=== PATIENT | male | born 1975 | race Two or more races ===

== ENCOUNTER 2019-10-26 12:17 | Emergency (ER) | payer MEDICAID ==
[~2019-10-26] VITALS: Ht 162.6 cm; Wt 56.7 kg
[~2019-10-26 12:17] MED LIST: *INS REG3 SQ; Blood Sugar Diagnostic IN; INSU100C4 SQ; INSU100I19 SQ; INSU100V28 SQ
--- NOTE | 2019-10-26 12:22 | NUR ---
PT BIB SELF C/O DIZZINESS STARTED YESTERDAY, PT IS AAOX4, NOT IN RESPIRATORY DISTRESS, HOOKED TO MONITOR, KEPT RESTED AND COMFORTABLE, WILL CONTINUE TO MONITOR.
--- NOTE | 2019-10-26 12:40 | NUR ---
IV LINE ESTABLISHED, BLOOD DRAWN AND SENT TO LAB.
--- NOTE | 2019-10-26 12:45 | NUR ---
SEEN AND EXAMINED BY BLAKE EUBANKS
[2019-10-26 12:53] LABS: BASOPHILS # (AUTO) 0.1 /CMM (0.0-0.2); BASOPHILS % (AUTO) 0.6 % (0.0-2.0); EOSINOPHILS % (AUTO) 0.4 % (0.0-6.0); HEMATOCRIT 43 % (39-51); HEMOGLOBIN 14.2 g/dL (13.5-17.5); LYMPHOCYTES # (AUTO) 1.4 /CMM (0.8-4.8); LYMPHOCYTES % (AUTO) 13.1 % (20.0-44.0); MEAN CORPUSCULAR HGB CONC 33 g/dl (31.0-36.0); MEAN CORPUSCULAR VOLUME 91 fL (80-96); MONOCYTES # (AUTO) 0.5 /CMM (0.1-1.30); MONOCYTES % (AUTO) 4.7 % (2.0-12.0); NEUTROPHILS % (AUTO) 81.2 % (43.0-81.0); PLATELET COUNT (AUTO) 217 /CMM (150-450); RED BLOOD CELL COUNT(AUTO) 4.72 MIL/uL (4.5-6.0)
[2019-10-26] MEDS ORDERED: ONDANSETRON HCL/PF 4 MG/2 ML VIAL ONE (12:53)
[2019-10-26] MEDS ORDERED: MECLIZINE HCL 25 MG TABLET ONE (12:53)
[2019-10-26] MEDS ORDERED: ONDANSETRON HCL/PF 4 MG/2 ML VIAL IVP ONE (13:00)
[2019-10-26] MEDS ORDERED: MECLIZINE HCL 25 MG TABLET PO ONE (13:00)
[2019-10-26] MEDS ORDERED: IV NS 0.9% 1,000 ML BAG IV ONE ×2 (13:00→13:30)
[2019-10-26 13:09] LABS: CALCIUM, SERUM 8.9 mg/dL (8.5-10.1); CREATININE 0.9 mg/dL (0.6-1.3); POTASSIUM 3.8 mmol/L (3.5-5.1)
[2019-10-26 13:30] LABS: APPEARANCE,URINE CLEAR (CLEAR); BILIRUBIN,URINE NEGATIVE (NEGATIVE); BLOOD, URINE NEGATIVE Ery/uL (NEGATIVE); COLOR,URINE YELLOW (YELLOW); KETONES,URINE NEGATIVE (NEGATIVE); LEUKOCYTE ESTERASE ,URINE NEGATIVE (NEGATIVE); NITRITE, URINE NEGATIVE (NEGATIVE); PROTEIN,URINE NEGATIVE (NEGATIVE); UGLUCOSE >=1000 mg/dL (NEGATIVE); UROBILINOGEN,URINE 0.2 EU/dL (0.2)
[2019-10-26 13:36] LABS: BACTERIA,URINE None seen /HPF (None Seen); RBC,URINE NONE SEEN /HPF (0-2); SQUAMOUS EPITHELIAL CELL,UR 0-2 /HPF (None Seen); WBC,URINE NONE SEEN /HPF (0-3)
[2019-10-26] MEDS ORDERED: INSULIN REGULAR, HUMAN 100 UNIT/ML 10 ML VIAL IV ONE (14:00)
[2019-10-26] MEDS ORDERED: INSULIN REGULAR, HUMAN 100 UNIT/ML 10 ML VIAL ONE (14:05)
[2019-10-26 14:52] VITALS: BP 121/79
--- NOTE | 2019-10-26 14:52 | NUR ---
IV removed. Catheter intact and site benign. Pressure and 4x4 applied to site. No bleeding noted. Patient discharged to home in stable condition. Written and verbal after care instructions given. Patient verbalizes understanding of instruction.
== END 2019-10-26 14:53 | disposition home or self-care (01) ==
LOC: ER 12:22
DX: E11.65 Type 2 diabetes mellitus with hyperglycemia (principal); R42 Dizziness and giddiness; R11.0 Nausea; Z88.0 Allergy status to penicillin; Z79.4 Long term (current) use of insulin
CPT/HCPCS: 36415; 80048; 81001; 82962; 85025; 93005; 96361; 96374; 96375; 99284; J1815; J2405; J7030 ×2; J8597; 81000-TC

== ENCOUNTER 2019-11-16 14:05 | Emergency (ER) | payer MEDICAID ==
[~2019-11-16] VITALS: Ht 162.6 cm; Wt 56.7 kg
[2019-11-16] MEDS ORDERED: FLUORESCEIN SODIUM OPHTH 1 EA STRIP ONE (15:19)
[2019-11-16] MEDS ORDERED: FLUORESCEIN SODIUM OPHTH 1 EA STRIP OP ONE (15:30)
[2019-11-16] MEDS ORDERED: TETRAcaine 5 ML BOTTLE EACHEYE ONE (15:30)
[2019-11-16 15:39] VITALS: BP 115/78
== END 2019-11-16 15:43 | disposition home or self-care (01) ==
LOC: ER 14:07
DX: H10.9 Unspecified conjunctivitis (principal); E11.9 Type 2 diabetes mellitus without complications; Z88.0 Allergy status to penicillin; Z79.4 Long term (current) use of insulin

== ENCOUNTER 2019-12-05 12:39 | Emergency (ER) | payer MEDICAID ==
[~2019-12-05] VITALS: Ht 165.1 cm; Wt 55.8 kg
--- NOTE | 2019-12-05 13:00 | NUR ---
FEVER, CHILLS, AND BODY ACHES X 2 DAYS. PATIENT A/OX4, BREATHING EVEN AND UNLABORED, NO SOB NOTED, CHANGED INTO GOWN, ATTACHED TO THE RN RESEARCH.
--- NOTE | 2019-12-05 13:10 | NUR ---
ACCUCHECK SHOWED HIGH, LUAN LOVE MADE AWARE.
[2019-12-05] MEDS ORDERED: ONDANSETRON HCL/PF 4 MG/2 ML VIAL IVP ONE (13:30)
[2019-12-05] MEDS ORDERED: INSULIN REGULAR, HUMAN 100 UNIT/ML 10 ML VIAL SQ ONE (13:30)
[2019-12-05] MEDS ORDERED: ACETAMINOPHEN ES 500 MG TABLET PO ONE (13:30)
[2019-12-05] MEDS ORDERED: IV NS 0.9% 1,000 ML BAG IV ONE (13:30)
[2019-12-05] MEDS ORDERED: ONDANSETRON HCL/PF 4 MG/2 ML VIAL ONE (13:33)
[2019-12-05] MEDS ORDERED: INSULIN REGULAR, HUMAN 100 UNIT/ML 10 ML VIAL ONE (13:34)
[2019-12-05] MEDS ORDERED: ACETAMINOPHEN ES 500 MG TABLET ONE (13:35)
[2019-12-05 13:39] LABS: BASOPHILS # (AUTO) 0.1 /CMM (0.0-0.2); BASOPHILS % (AUTO) 0.6 % (0.0-2.0); EOSINOPHILS % (AUTO) 0.6 % (0.0-6.0); HEMATOCRIT 43 % (39-51); HEMOGLOBIN 14.5 g/dL (13.5-17.5); LYMPHOCYTES # (AUTO) 1.7 /CMM (0.8-4.8); MEAN CORPUSCULAR HGB CONC 33 g/dl (31.0-36.0); MEAN CORPUSCULAR VOLUME 91 fL (80-96); MONOCYTES % (AUTO) 6.6 % (2.0-12.0); NEUTROPHILS # (AUTO) 12.2 /CMM (1.8-8.9); NEUTROPHILS % (AUTO) 81.2 % (43.0-81.0); PLATELET COUNT (AUTO) 204 /CMM (150-450); RED BLOOD CELL COUNT(AUTO) 4.79 MIL/uL (4.5-6.0); WHITE BLOOD COUNT (AUTO) 15.1 K/uL (4.3-11.0)
[2019-12-05 14:03] LABS: BILIRUBIN,DIRECT 0.1 mg/dL (0.0-0.2); BILIRUBIN,TOTAL 0.3 mg/dL (0.2-1.0); CALCIUM, SERUM 9.6 mg/dL (8.5-10.1); CREATININE 1.4 mg/dL (0.6-1.3); POTASSIUM 3.6 mmol/L (3.5-5.1); TOTAL PROTEIN, SERUM 7.6 g/dL (6.4-8.2)
--- NOTE | 2019-12-05 14:15 | NUR ---
PATIENT RESTING, NO DISTRESS NOTED, AMBULATORY WITH STEADY GAIT.
[2019-12-05 14:41] LABS: APPEARANCE,URINE Clear (CLEAR); BILIRUBIN,URINE Negative (NEGATIVE); BLOOD, URINE Trace-intact Ery/uL (NEGATIVE); COLOR,URINE Yellow (YELLOW); KETONES,URINE 15 (NEGATIVE); LEUKOCYTE ESTERASE ,URINE Negative (NEGATIVE); NITRITE, URINE Negative (NEGATIVE); PROTEIN,URINE Negative (NEGATIVE); UGLUCOSE >=1000 mg/dL (NEGATIVE); UROBILINOGEN,URINE 0.2 EU/dL (0.2)
[2019-12-05 14:44] LABS: BACTERIA,URINE Rare /HPF (None Seen); HYALINE CASTS, URINE Rare /LPF (None Seen); SQUAMOUS EPITHELIAL CELL,UR Rare /HPF (None Seen); WBC,URINE 0-2 /HPF (0-3)
--- NOTE | 2019-12-05 16:13 | NUR ---
BED ASSIGNED 119-1
--- NOTE | 2019-12-05 16:24 | NUR ---
REPORT GIVEN TO MICKIE HASKINS FOR SUSAN.
--- NOTE | 2019-12-05 16:32 | NUR ---
PATIENT WAS AUTHORIZED FOR ADMISSION, WAS ABOUT TO TRANSFER TO FLOOR, BUT LUAN LOVE, CHANGED HER MIND AND DECIDED TO DISCHARGE PATIENT HOME.
--- NOTE | 2019-12-05 16:33 | NUR ---
LUAN LOVE AT BEDSIDE GIVING DISCHARGE INSTRUCTIONS.
--- NOTE | 2019-12-05 16:52 | NUR ---
PATIENT Ambulatory with a steady gait.IV removed. Catheter intact and site benign. Pressure and 4x4 applied to site. No bleeding noted.Patient discharged to home in stable condition. Written and verbal after care instructions given. Patient verbalizes understanding of instruction.
[2019-12-05 16:53] VITALS: BP 137/96
== END 2019-12-05 16:54 | disposition home or self-care (01) ==
LOC: ER 12:42 → UNDOADMIN 16:26 → TELE1 16:26 → ER 16:54
DX: E11.65 Type 2 diabetes mellitus with hyperglycemia (principal); E86.0 Dehydration; R74.8 Abnormal levels of other serum enzymes; D72.828 Other elevated white blood cell count; R31.9 Hematuria, unspecified; Z88.0 Allergy status to penicillin
CPT/HCPCS: 36415; 71045; 80048; 80076; 81001; 82962; 85025; 87077; 87081; 87086; 87804 ×2; 93005; 96361; 96372; 96374; 99284; J1815; J2405; J7030 ×2; 81000-TC

== ENCOUNTER 2019-12-07 11:06 | Inpatient (IN) | payer BC, MEDICAID ==
[2019-12-07] VITALS (10 sets, daily range): BP systolic 115–135; BP diastolic 73–88
[~2019-12-07] VITALS: Ht 162.6 cm; Wt 51.7 kg
--- NOTE | 2019-12-07 11:15 | NUR ---
meaghan, c/o nausea vomiting, and r knee pain x 2 days, was here 2 days ago. Patient a/ox4, breathing even and unlabored, no sob noted, changed into gown, attached to the threat monitoring analyst. Kept comfortable, family at bedside.
[2019-12-07] MEDS ORDERED: ONDANSETRON HCL/PF 4 MG/2 ML VIAL ONE (11:23)
[2019-12-07] MEDS ORDERED: METF-440 PO (11:28)
[2019-12-07] MEDS ORDERED: ONDANSETRON HCL/PF 4 MG/2 ML VIAL IVP ONE (11:30)
[2019-12-07] MEDS ORDERED: IV NS 0.9% 1,000 ML BAG IV ONE ×2 (11:30→12:30)
--- NOTE | 2019-12-07 11:30 | NUR ---
IV LINE ESTABLISHED, BLOOD DRAWN AND SENT TO LAB.
[2019-12-07 11:41] LABS: BASOPHILS % (AUTO) 0.2 % (0.0-2.0); HEMATOCRIT 43 % (39-51); HEMOGLOBIN 14.2 g/dL (13.5-17.5); LYMPHOCYTES # (AUTO) 1.3 /CMM (0.8-4.8); LYMPHOCYTES % (AUTO) 7.1 % (20.0-44.0); MEAN CORPUSCULAR HGB CONC 33 g/dl (31.0-36.0); MEAN CORPUSCULAR VOLUME 91 fL (80-96); MONOCYTES # (AUTO) 0.7 /CMM (0.1-1.30); MONOCYTES % (AUTO) 3.7 % (2.0-12.0); NEUTROPHILS # (AUTO) 16.9 /CMM (1.8-8.9); PLATELET COUNT (AUTO) 298 /CMM (150-450); RED BLOOD CELL COUNT(AUTO) 4.72 MIL/uL (4.5-6.0)
[2019-12-07 11:44] LABS: APPEARANCE,URINE Clear (CLEAR); BILIRUBIN,URINE Negative (NEGATIVE); BLOOD, URINE Small Ery/uL (NEGATIVE); COLOR,URINE Yellow (YELLOW); KETONES,URINE >=160 (NEGATIVE); LEUKOCYTE ESTERASE ,URINE Negative (NEGATIVE); NITRITE, URINE Negative (NEGATIVE); PROTEIN,URINE Negative (NEGATIVE); UGLUCOSE 500 MG/DL mg/dL (NEGATIVE); UROBILINOGEN,URINE 0.2 EU/dL (0.2)
[2019-12-07 11:47] LABS: BACTERIA,URINE Rare /HPF (None Seen); RBC,URINE 0-2 /HPF (0-2); SQUAMOUS EPITHELIAL CELL,UR Few /HPF (None Seen); WBC,URINE 0-2 /HPF (0-3)
[2019-12-07 12:05] LABS: ALANINE AMINOTRANSFERASE 40 U/L (12-78); ALBUMIN 2.9 g/dL (3.4-5.0); ALKALINE PHOSPHATASE 155 U/L (46-116); ASPARTATE AMINOTRANSFERASE 10 U/L (15-37); BILIRUBIN,DIRECT 0.1 mg/dL (0.0-0.2); BILIRUBIN,TOTAL 0.5 mg/dL (0.2-1.0); CARBON DIOXIDE 13 mmol/L (21-32); CHLORIDE 103 mmol/L (98-107); CREATININE 1.5 mg/dL (0.6-1.3); LIPASE 46 U/L (73-393); POTASSIUM 3.8 mmol/L (3.5-5.1); SODIUM SERUM 143 mmol/L (136-145); TOTAL PROTEIN, SERUM 8.5 g/dL (6.4-8.2); UREA NITROGEN, BLOOD 27 mg/dL (7-18)
[2019-12-07 12:06] LABS: GLUCOSE 443 mg/dL (74-106)
[2019-12-07 12:07] LABS: B-TYPE NATRIURETIC PEPTIDE 937 PG/ML (0-125)
[2019-12-07] MEDS ORDERED: INSULIN REGULAR, HUMAN 100 UNIT in IV NS 0.9% 99 ML IV PRN ×2 (12:30)
[2019-12-07] MEDS ORDERED: LEVOFLOXACIN 500 MG /D5W 100ML 500 MG/100 ML PIGGYBACK IV ONE (12:30)
[2019-12-07] MEDS ORDERED: FLAGYL/NS RTU 500 MG/100 ML PIGGYBACK IV ONE (12:30)
--- NOTE | 2019-12-07 12:30 | NUR ---
INSULIN DRIP STARTED AT 1230 AT A RATE OF 6UNITS/HR ON RAC G18 IV.
[2019-12-07 12:34] LABS: ABG BASE EXCESS -18.6 mmol/L; ABG PCO2 16.3 mmHg (35.0-45.0); ABG PH 7.221 (7.350-7.450); ABG PO2 117.3 mmHg (75.0-100.0); AaDO2 12.9 mmHg; SITE, ABG Left Radial; VENT MODE, BG Room Air
[2019-12-07] MEDS ORDERED: LEVOFLOXACIN 500 MG /D5W 100ML 100 ML IV ONE (12:38)
[2019-12-07] MEDS ORDERED: METRONIDAZOLE 500MG/ NS 100ML 100 ML IV ONE (12:38)
[2019-12-07] MEDS ORDERED: IV NS 0.9% 1,000 ML IV PRN (12:45)
--- NOTE | 2019-12-07 12:50 | NUR ---
CALLED RN [employer] INST[employer]ER FOR ICU BED
[2019-12-07 12:55] LABS: CALCIUM, SERUM 8.9 mg/dL (8.5-10.1); CREATININE 1.4 mg/dL (0.6-1.3); MAGNESIUM 1.9 mg/dL (1.8-2.4); PHOSPHORUS 4.3 mg/dL (2.5-4.9); POTASSIUM 4.1 mmol/L (3.5-5.1)
[2019-12-07] MEDS ORDERED: Z GUARD REMEDY 2 OZ OINT TP PRN (13:00)
[2019-12-07] MEDS ORDERED: ACETAMINOPHEN 325 MG TABLET PO PRN (13:00)
[2019-12-07] MEDS ORDERED: TEMAZEPAM 15 MG CAPSULE PO PRN (13:00)
[2019-12-07] MEDS ORDERED: MORPHINE SULFATE INJ 2 MG/ML DISP.SYRIN IV PRN (13:00)
[2019-12-07] MEDS ORDERED: ONDANSETRON HCL/PF 4 MG/2 ML VIAL IVP PRN (13:00)
--- NOTE | 2019-12-07 13:00 | NUR ---
PATIENT AA/OX4, BREATHING EVEN AND UNLABORED, NO SOB NOTED. SEEN BY ESTELITA HERNANDEZ NP. CT SCAN COMPLETED, RESULT PENDING.
--- NOTE | 2019-12-07 13:31 | NUR ---
Assigned to room 256. Tried to give report, but receiving nurse is currently on break.
--- NOTE | 2019-12-07 14:06 | NUR ---
REPORT GIVEN TO STEFANO HASKINS FOR SUSAN.
--- NOTE | 2019-12-07 14:15 | NUR ---
ICU/RN PT ADMITTED FROM ER.ON INSULIN DRIP AT 6 UNITS.C/O OF NAUSEA/VOMITING,WEAKNESS.PT IS AWAKE ,ALERT.V/S STABLE,AFEBRILE.NO PAIN REPORTED AT THIS TIME.SKIN INTACT.NPO.WAITING FOR GI CONSULT.
--- NOTE | 2019-12-07 14:19 | NUR ---
PATIENT TRANSFERRED TO ROOM 256 VIA ACLS PROTOCOL. PATIENT A/OX4, NO DSITRESS NOTED.
[2019-12-07 14:36] LABS: CALCIUM, SERUM 9.3 mg/dL (8.5-10.1); CREATININE 1.4 mg/dL (0.6-1.3); MAGNESIUM 2.1 mg/dL (1.8-2.4); PHOSPHORUS 2.3 mg/dL (2.5-4.9); POTASSIUM 3.3 mmol/L (3.5-5.1)
[2019-12-07] MEDS: PANTOPRAZOLE 40 MG VIAL IV SCH (14:50)
--- NOTE | 2019-12-07 15:00 | NUR ---
ICU/RN PT VOMIT WITH [address] GARCIA SEEN THE PT .REGLAN 10 MG IV ORDERED.KEEP PT NPO.NO NG TUBE.DUE MEDS ARE GIVEN ORDERED.CONTINUE MONITORING.
--- NOTE | 2019-12-07 15:00 | NUR ---
ICU/RN PT IS ON INSULIN DRIP .DR ORDERED FORMULA FOR INSULIN DRIP: USE BLOOD SUGAR RESULT MULTIPLY 2 AND DIVIDED 100.
[2019-12-07] MEDS: METOCLOPRAMIDE HCL 10 MG/2 ML VIAL IV SCH ×2 (15:19→20:37)
[2019-12-07] MEDS ORDERED: DEXTROSE 50%-WATER 50 ML DISP.SYRIN IV PRN (16:00)
--- NOTE | 2019-12-07 16:07 | NUR ---
ICU/RN PT WAS C/O OF RIGHT KNEE PAIN DURING ADMISSION.X-RAY ORDERED.
[2019-12-07 16:24] LABS: CREATININE 1.4 mg/dL (0.6-1.3); POTASSIUM 3.1 mmol/L (3.5-5.1)
[2019-12-07] MEDS: BLOOD SUGAR DIAGNOSTIC 1 EACH STRIP IN SCH ×15 (16:25→22:55)
[2019-12-07 16:28] LABS: PHOSPHORUS 1.6 mg/dL (2.5-4.9)
[2019-12-07] MEDS: Potassium Chloride 40 MEQ in IV D5/0.45 NACL 1,000 ML IV PRN (18:53)
[2019-12-07] MEDS: INSULIN REGULAR, HUMAN 100 UNIT in IV NS 0.9% 99 ML IV PRN ×2 (19:50)
[2019-12-07 20:32] LABS: CALCIUM, SERUM 8.8 mg/dL (8.5-10.1); CREATININE 1.4 mg/dL (0.6-1.3); POTASSIUM 3.3 mmol/L (3.5-5.1)
[2019-12-07] MEDS: METRONIDAZOLE 500MG/ NS 100ML 500 MG in PREMIX 1 EA IV SCH (20:37)
--- NOTE | 2019-12-07 20:38 | NUR ---
ICU/RN PT VOMIT 50 ML.REGLAN 10 MG IV GIVEN ORDERED.BS-140.PT IS ON INSULIN DRIP.CONTINUE MONITORING.
[2019-12-08] VITALS (24 sets, daily range): BP systolic 117–157; BP diastolic 77–98
[2019-12-08] MEDS: BLOOD SUGAR DIAGNOSTIC 1 EACH STRIP IN SCH ×32 (00:10→23:56)
[2019-12-08 00:44] LABS: CALCIUM, SERUM 8.7 mg/dL (8.5-10.1); CREATININE 1.2 mg/dL (0.6-1.3); POTASSIUM 3.1 mmol/L (3.5-5.1)
[2019-12-08] MEDS: METRONIDAZOLE 500MG/ NS 100ML 500 MG in PREMIX 1 EA IV SCH ×3 (04:29→20:30)
[2019-12-08] MEDS: METOCLOPRAMIDE HCL 10 MG/2 ML VIAL IV SCH ×3 (04:29→20:31)
[2019-12-08] MEDS: Potassium Chloride 40 MEQ in IV D5/0.45 NACL 1,000 ML IV PRN ×2 (04:30→18:12)
[2019-12-08 05:10] LABS: BASOPHILS # (AUTO) 0.1 /CMM (0.0-0.2); BASOPHILS % (AUTO) 0.7 % (0.0-2.0); HEMATOCRIT 34 % (39-51); HEMOGLOBIN 11.3 g/dL (13.5-17.5); LYMPHOCYTES # (AUTO) 1.7 /CMM (0.8-4.8); LYMPHOCYTES % (AUTO) 11.2 % (20.0-44.0); MEAN CORPUSCULAR HGB CONC 34 g/dl (31.0-36.0); MEAN CORPUSCULAR VOLUME 89 fL (80-96); MONOCYTES # (AUTO) 1.3 /CMM (0.1-1.30); MONOCYTES % (AUTO) 8.7 % (2.0-12.0); NEUTROPHILS # (AUTO) 11.8 /CMM (1.8-8.9); NEUTROPHILS % (AUTO) 79.4 % (43.0-81.0); PLATELET COUNT (AUTO) 241 /CMM (150-450); RED BLOOD CELL COUNT(AUTO) 3.83 MIL/uL (4.5-6.0); WHITE BLOOD COUNT (AUTO) 14.8 K/uL (4.3-11.0)
[2019-12-08 05:28] LABS: CALCIUM, SERUM 8.6 mg/dL (8.5-10.1); CARBON DIOXIDE 18 mmol/L (21-32); CHLORIDE 116 mmol/L (98-107); GLUCOSE 151 mg/dL (74-106); MAGNESIUM 1.8 mg/dL (1.8-2.4); PHOSPHORUS 1.1 mg/dL (2.5-4.9); SODIUM SERUM 148 mmol/L (136-145); UREA NITROGEN, BLOOD 15 mg/dL (7-18)
[2019-12-08 05:30] LABS: CHOLESTEROL 150 mg/dL (<200); HDL CHOLESTEROL < 10 mg/dL (40-60); LDL 95 mg/dL (0-99); THYROID STIMULATING HORMONE 0.568 uIU/mL (0.358-3.74); TRIGLYCERIDES 149 mg/dL (30-150)
--- NOTE | 2019-12-08 07:44 | NUR ---
RN INITAL NOTES RECEIVED PT AWAKE AND ALERT, DENIES PAIN. NO SIGNS OF ANY DISTRESS. ABLE TO MAKE NEEDS KNOWN. PT REMAINS ON NPO. SAFETY ENSURED AND REMAINS ON BLOOD SUGAR CHECKS HOURLY WITH INSULIN DRIP DIRECTED.
[2019-12-08] MEDS ORDERED: POTASSIUM CHLORIDE 20 MEQ TAB.PRT.SR PO ONE ×2 (08:00→16:00)
[2019-12-08] MEDS: CEFTRIAXONE 1 G in IV D5W 50 ML IV SCH (08:44)
[2019-12-08 08:45] LABS: CALCIUM, SERUM 8.9 mg/dL (8.5-10.1)
[2019-12-08] MEDS: PANTOPRAZOLE 40 MG VIAL IV SCH (08:45)
[2019-12-08 12:43] LABS: CALCIUM, SERUM 8.9 mg/dL (8.5-10.1); POTASSIUM 3.1 mmol/L (3.5-5.1)
[2019-12-08] MEDS: INSULIN REGULAR, HUMAN 100 UNIT in IV NS 0.9% 99 ML IV PRN ×2 (13:12)
[2019-12-08] MEDS ORDERED: NEUTRA PHOS 1 POWD.PACKET PO ONE (16:00)
--- NOTE | 2019-12-08 18:31 | NUR ---
rn closing notes no significant change during this shift. remains on hourly accuchecks and insulin as ordered. will endorse to next shift rn for continuity of care in stable condition
[2019-12-08 19:06] LABS: CALCIUM, SERUM 9.3 mg/dL (8.5-10.1); POTASSIUM 3.6 mmol/L (3.5-5.1)
--- NOTE | 2019-12-08 19:30 | NUR ---
RN NOTE RECEIVED PATIENT AOX4 SR ON TELE MONITOR. NO ACUTE RESPIRATORY DISTRESS DENIES PAIN IN ROOM AIR, AT THIS TIME. NO N/V PRESENT. AFEBRILE. IV SITE ON RAC AND LAC G 18 WITH D5 1/2 NS +40 MEQ POTASSIUM AND INSULIN DRIP @ 3.88 WILL TITRATED ORDERED. ACCUCHECK Q1H BS AT THIS TIME 219MG/DL. CALL LIGHT KEPT WITHN EASY REACH ENCOURAGED TO USED CALL LIGHT FOR ASSISTANCE. WILL CONTINUE TO MONITOR.
[2019-12-08 22:32] LABS: CALCIUM, SERUM 9.3 mg/dL (8.5-10.1); POTASSIUM 3.9 mmol/L (3.5-5.1)
[2019-12-09] VITALS (8 sets, daily range): BP systolic 147–166; BP diastolic 80–96
[2019-12-09] MEDS ORDERED: INSULIN GLARGINE, 100 UNIT/ML CARTRIDGE SQ ONE
--- NOTE | 2019-12-09 | NUR ---
RN NOTES 2340 PM - INFORMED REGARDING PATIENT BS 115 MG/DL AND ANION GAP 15. WITH NEW ORDER ACKNOWLEDGED
[2019-12-09] MEDS ORDERED: *INSULIN REGULAR(HUMULIN R)HUM 100 UNIT/ML VIAL SQ PRN (00:30)
[2019-12-09] MEDS ORDERED: DEXTROSE 50%-WATER 50 ML DISP.SYRIN IV PRN (00:30)
[2019-12-09] MEDS: Potassium Chloride 40 MEQ in IV D5/0.45 NACL 1,000 ML IV PRN (04:47)
[2019-12-09] MEDS: METRONIDAZOLE 500MG/ NS 100ML 500 MG in PREMIX 1 EA IV SCH ×2 (04:47→13:00)
[2019-12-09] MEDS: METOCLOPRAMIDE HCL 10 MG/2 ML VIAL IV SCH ×2 (04:51→13:00)
--- NOTE | 2019-12-09 05:05 | NUR ---
RN NOTES TRANSFERRED PATIENT TO [facility] ROOM 316-A . PATIENT IS IN STABLE CONDITION , CONTINUE WITH IVF ORDERED. REPORT GIVEN TO JEROME FOR CONTINUITY OF CARE .
--- NOTE | 2019-12-09 05:05 | NUR ---
MS RN NOTES PATIENT ARRIVED ON FLOOR 0505 ON WHEELCHAIR. PATIENT IN BED, AWAKE, ALERT AND ORIENTED X 4. BREATHING EVEN AND UNLABORED ON ROOM AIR. SHOWS NO SIGNS OF ACUTE RESPIRATORY DISTRESS. NO ACUTE PAIN. IV ON RAC 18G RUNNING D5 1/2NS KCL 40MEQ AT 125ML/ HR. SHOWS NO SIGNS OF INFILTRATION NO REDNESS. BELONGINGS CHECKLIST COMPLETED, AND PATIENT ORIENTED TO ROOM AND UNIT. SAFETY PRECAUTIONS IN PLACE. BED IN LOWEST POSITION, LOCKED, AND CALL LIGHT KEPT WITHIN REACH. WILL CONTINUE TO MONITOR.
[2019-12-09 05:17] LABS: HEMATOCRIT 36 % (39-51); HEMOGLOBIN 12.2 g/dL (13.5-17.5); MEAN CORPUSCULAR HGB CONC 34 g/dl (31.0-36.0); MEAN CORPUSCULAR VOLUME 88 fL (80-96); PLATELET COUNT (AUTO) 259 /CMM (150-450); RED BLOOD CELL COUNT(AUTO) 4.06 MIL/uL (4.5-6.0); WHITE BLOOD COUNT (AUTO) 12.7 K/uL (4.3-11.0)
[2019-12-09 05:29] LABS: CALCIUM, SERUM 9.1 mg/dL (8.5-10.1); CREATININE 0.9 mg/dL (0.6-1.3); POTASSIUM 4.1 mmol/L (3.5-5.1)
--- NOTE | 2019-12-09 06:36 | NUR ---
MS RN NOTES PATIENT IN BED, ASLEEP, ALERT AND ORIENTED X 4. BREATHING EVEN AND UNLABORED ON ROOM AIR. SHOWS NO SIGNS OF ACUTE RESPIRATORY DISTRESS. NO ACUTE PAIN. IV ON RAC 18G RUNNING D5 1/2NS KCL 40MEQ AT 125ML/ HR. SHOWS NO SIGNS OF INFILTRATION NO REDNESS. TELE ON SR AT 71HR ALL DUE MEDICATIONS GIVEN. SAFETY PRECAUTIONS IN PLACE. BED IN LOWEST POSITION, LOCKED, AND CALL LIGHT KEPT WITHIN REACH. WILL ENDORSE TO ONCOMING NURSE.
[2019-12-09] MEDS: BLOOD SUGAR DIAGNOSTIC 1 EACH STRIP VI SCH ×2 (06:38→12:06)
[2019-12-09] MEDS: INSULIN REGULAR, HUMAN 100 UNIT/ML 3 ML VIAL SQ PRN ×2 (06:44→11:59)
--- NOTE | 2019-12-09 07:25 | NUR ---
METALLURGICAL ENGINEERING TEACHER OPENING NOTES RECEIVED PT IN BED, AWAKE, A/O X4. PT TOLERATING RA, WITH NO ACUTE RESPIRATORY DISTRESS NOTED. PT STATES KNEE PAIN OF 4/10, PREFERS TO HAVE TYLENOL INCLUDED IN MORNING MEDICINES. ALSO, PT WANTS TO BE DISCHARGE TODAY IF POSSIBLE. ON TELEMONITORING, SB 58, PT DENIES CHEST PAIN. IVF D5 1/2 NS WITH 40 MEQS K+ AT 125ML/HR TO RAC G18, INTACT AND FLUID INFUSING WELL. KEPT PT COMFORTABLE IN BED. CALL LIGHT KEPT WITHIN REACH. PT'S BED KEPT IN LOWEST, LOCKED POSITION WITH SRX3. WILL CONTINUE PLAN OF CARE.
[2019-12-09] MEDS ORDERED: BLOOD SUGAR DIAGNOSTIC 1 EACH STRIP IN SCH (07:30)
[2019-12-09 08:12] LABS: LYMPHOCYTES % (MANUAL) 22 % (16-48); MONOCYTES % (MANUAL) 8 % (0-11.0); NEUTROPHILS % (MANUAL) 70 (42-76)
[2019-12-09] MEDS: CEFTRIAXONE 1 G in IV D5W 50 ML IV SCH (08:31)
[2019-12-09] MEDS: PANTOPRAZOLE 40 MG VIAL IV SCH (08:31)
[2019-12-09] MEDS ORDERED: INFLUENZA VACCINE 2019-20 0.5 ML DISP.SYRIN IM ONE (13:00)
--- NOTE | 2019-12-09 13:54 | NUR ---
MS BPM ARCHITECT NOTES PT IN BED, AWAKE, A/O X4. PT TOLERATING RA, WITH NO ACUTE RESPIRATORY DISTRESS NOTED. PT DENIES ANY PAIN OR DISCOMFORT AT THE TIME OF DISCHARGE. PT REVIEWED AND SIGNED DISCHARGE INSTRUCTIONS AND INVENTORY LIST. ALL BELONGINGS WITH THE PT. PRESCRIPTIONS GIVEN TO PT. PT KNOWS HOW TO TAKE INSULIN. FLU VACCINE GIVEN TO RIGHT DELTOID. ALL NEEDS AND CARE PROVIDED. PT HAPPY WITH THE CARE. PIV TO RAC G18, REMOVED, APPLIED DRY DRESSING. SKIN INTACT, NO PICTURES TAKEN AND FILED IN THE CHART. PT ESCORTED TO THE LOBBY WITH THE SON. HOSPITALIST/NN AND CN/KOBE AWARE OF DISCHARGE. PT LEFT THE UNIT AT 1340.
[2019-12-09] MEDS ORDERED: INSULIN GLARGINE, 100 UNIT/ML CARTRIDGE SQ SCH (22:00)
== END 2019-12-09 13:36 | disposition home or self-care (01) | DRG 420 ==
LOC: ER 11:06 → ICU 13:44 → TELE 12-09 05:09 → MED 12-09 10:33
PROVIDERS: ADMIT Nurse Practitioner Acute Care; ATTEND Nurse Practitioner Acute Care
DX: E11.10 Type 2 diabetes mellitus with ketoacidosis without coma (principal); N17.0 Acute kidney failure with tubular necrosis; R65.11 Systemic inflammatory response syndrome (SIRS) of non-infectious origin with acute organ dysfunction; E44.0 Moderate protein-calorie malnutrition; E87.6 Hypokalemia; D72.829 Elevated white blood cell count, unspecified; Z68.1 Body mass index [BMI] 19.9 or less, adult; K57.32 Diverticulitis of large intestine without perforation or abscess without bleeding; E11.43 Type 2 diabetes mellitus with diabetic autonomic (poly)neuropathy; K31.84 Gastroparesis; M25.461 Effusion, right knee; Z88.0 Allergy status to penicillin
CPT/HCPCS: 36415; 36600; 73564-TC; 80048-TC; 80061-TC; 80076-TC; 81000-TC; 82010-TC; 82803-TC; 82962-TC; 83605-TC; 83690-TC; 83735-TC; 83880; 84100-TC; 84443-TC; 84484-TC; 85025-TC; 87040-TC; 87081-TC; 87086-TC; A4216; C9113; G0378; J0696; J1815; J1956; J2405; J2765; J3480; J3490; J7030; J7050; J7060; Q2036

== ENCOUNTER 2022-07-07 12:19 | Emergency (ER) | payer BC, MEDICAID ==
[~2022-07-07] VITALS: Ht 162.6 cm; Wt 56.7 kg
--- NOTE | 2022-07-07 12:26 | NUR ---
bib son, c/o weakness and generalized body aches. tested +covid 2 days ago denies sob. AMBULATORY, PLACED ON BED, AAOX4, BREATHING EVEN AND UNLABORED. SEEN AND EXAMINED BY DR HERNANDEZ
--- NOTE | 2022-07-07 12:30 | NUR ---
BLOOD DRAWN AND SENT TO LAB
[2022-07-07] MEDS ORDERED: IV NS 0.9% 1,000 ML BAG IV ONE (13:00)
[2022-07-07 13:16] LABS: BASOPHILS % (AUTO) 0.8 % (0.0-2.0); HEMATOCRIT 39 % (39-51); HEMOGLOBIN 12.9 g/dL (13.5-17.5); LYMPHOCYTES # (AUTO) 0.9 K/uL (0.8-4.8); LYMPHOCYTES % (AUTO) 18.2 % (20.0-44.0); MEAN CORPUSCULAR HGB CONC 33 g/dl (31.0-36.0); MEAN CORPUSCULAR VOLUME 89 fL (80-96); MONOCYTES # (AUTO) 0.4 K/uL (0.1-1.30); MONOCYTES % (AUTO) 8.7 % (2.0-12.0); NEUTROPHILS # (AUTO) 3.5 K/uL (1.8-8.9); NEUTROPHILS % (AUTO) 72.3 % (43.0-81.0); PLATELET COUNT (AUTO) 159 K/uL (150-450); RED BLOOD CELL COUNT(AUTO) 4.38 MIL/uL (4.5-6.0); WHITE BLOOD COUNT (AUTO) 4.9 K/uL (4.3-11.0)
[2022-07-07 13:29] LABS: CARBON DIOXIDE 23 mmol/L (21-32); CHLORIDE 97 mmol/L (98-107); CREATININE 1.3 mg/dL (0.6-1.3); POTASSIUM 3.7 mmol/L (3.5-5.1); SODIUM SERUM 133 mmol/L (136-145); UREA NITROGEN, BLOOD 15 mg/dL (7-18)
[2022-07-07 13:35] LABS: GLUCOSE 599 mg/dL (74-106)
[2022-07-07] MEDS ORDERED: INSULIN REGULAR, HUMAN 100 UNIT/ML 10 ML VIAL ONE (13:53)
[2022-07-07] MEDS ORDERED: POTASSIUM CHLORIDE 20 MEQ TAB.PRT.SR PO ONE ×2 (13:53→14:00)
[2022-07-07] MEDS ORDERED: INSULIN REGULAR, HUMAN 100 UNIT/ML 10 ML VIAL SQ ONE (14:00)
[2022-07-07 16:48] VITALS: BP 104/61
--- NOTE | 2022-07-07 16:48 | NUR ---
IV removed. Catheter intact and site benign. Pressure and 4x4 applied to site. No bleeding noted.Patient discharged to home in stable condition. Written and verbal after care instructions given. Patient verbalizes understanding of instruction.
== END 2022-07-07 16:51 | disposition home or self-care (01) ==
LOC: ER 12:27
DX: U07.1 COVID-19 (principal); E11.65 Type 2 diabetes mellitus with hyperglycemia; Z91.14 Patient's other noncompliance with medication regimen; Z88.0 Allergy status to penicillin
CPT/HCPCS: 99283; 96360; 85025; 80048; 82010; 36415; 82962 ×2; 96372; J1815; J7030

== ENCOUNTER 2022-08-18 14:20 | Inpatient (IN) | payer MEDICAID ==
[~2022-08-18] VITALS: Ht 165.1 cm; Wt 53.5 kg
[2022-08-18 15:38] LABS: BASOPHILS # (AUTO) 0.1 K/uL (0.0-0.2); BASOPHILS % (AUTO) 0.8 % (0.0-2.0); EOSINOPHILS % (AUTO) 0.7 % (0.0-6.0); HEMATOCRIT 39 % (39-51); HEMOGLOBIN 12.9 g/dL (13.5-17.5); LYMPHOCYTES # (AUTO) 1.4 K/uL (0.8-4.8); LYMPHOCYTES % (AUTO) 14.1 % (20.0-44.0); MEAN CORPUSCULAR HGB CONC 33 g/dl (31.0-36.0); MEAN CORPUSCULAR VOLUME 87 fL (80-96); MONOCYTES # (AUTO) 0.6 K/uL (0.1-1.30); MONOCYTES % (AUTO) 6.1 % (2.0-12.0); NEUTROPHILS # (AUTO) 7.8 K/uL (1.8-8.9); NEUTROPHILS % (AUTO) 78.3 % (43.0-81.0); PLATELET COUNT (AUTO) 252 K/uL (150-450); RED BLOOD CELL COUNT(AUTO) 4.41 MIL/uL (4.5-6.0)
[2022-08-18 15:57] LABS: CALCIUM, SERUM 9.4 mg/dL (8.5-10.1); CREATININE 1.3 mg/dL (0.6-1.3); POTASSIUM 4.8 mmol/L (3.5-5.1)
[2022-08-18] MEDS ORDERED: INSULIN REGULAR, HUMAN 100 UNIT/ML 10 ML VIAL SQ ONE (16:30)
[2022-08-18] MEDS ORDERED: IV NS 0.9% 1,000 ML BAG IV ONE (16:30)
[2022-08-18] MEDS ORDERED: VANCOMYCIN 1 GM in IV D5W 250 ML IV ONE (16:30)
[2022-08-18] MEDS ORDERED: INSULIN REGULAR, HUMAN 100 UNIT/ML 10 ML VIAL ONE (16:37)
[2022-08-18 20:30] VITALS: BP 136/68
[2022-08-18] MEDS ORDERED: INSULIN REGULAR, HUMAN 100 UNIT/ML 3 ML VIAL SQ PRN (21:00)
[2022-08-18] MEDS ORDERED: *INSULIN REGULAR(HUMULIN R)HUM 100 UNIT/ML VIAL SQ PRN (21:00)
[2022-08-18] MEDS ORDERED: ONDANSETRON HCL/PF 4 MG/2 ML VIAL IVP PRN (21:00)
[2022-08-18] MEDS ORDERED: DEXTROSE 50%-WATER 50 ML DISP.SYRIN IV PRN (21:00)
[2022-08-18] MEDS: ENOXAPARIN SODIUM 40 MG/0.4 ML DISP.SYRIN SQ SCH (23:54)
[2022-08-18] MEDS: BLOOD SUGAR DIAGNOSTIC 1 EACH STRIP VI SCH (23:55)
[2022-08-19] MEDS: IV NS 0.9% 1,000 ML IV PRN (00:13)
[2022-08-19] MEDS: ACETAMINOPHEN 325 MG TABLET PO PRN ×3 (00:31→21:31)
[2022-08-19 05:54] LABS: BASOPHILS # (AUTO) 0.1 K/uL (0.0-0.2); BASOPHILS % (AUTO) 0.6 % (0.0-2.0); EOSINOPHILS % (AUTO) 0.2 % (0.0-6.0); HEMATOCRIT 35 % (39-51); HEMOGLOBIN 11.8 g/dL (13.5-17.5); LYMPHOCYTES # (AUTO) 2.3 K/uL (0.8-4.8); LYMPHOCYTES % (AUTO) 19.8 % (20.0-44.0); MEAN CORPUSCULAR HGB CONC 33 g/dl (31.0-36.0); MEAN CORPUSCULAR VOLUME 86 fL (80-96); MONOCYTES # (AUTO) 0.8 K/uL (0.1-1.30); MONOCYTES % (AUTO) 6.7 % (2.0-12.0); NEUTROPHILS # (AUTO) 8.4 K/uL (1.8-8.9); NEUTROPHILS % (AUTO) 72.7 % (43.0-81.0); PLATELET COUNT (AUTO) 252 K/uL (150-450); RED BLOOD CELL COUNT(AUTO) 4.09 MIL/uL (4.5-6.0); WHITE BLOOD COUNT (AUTO) 11.5 K/uL (4.3-11.0)
[2022-08-19 06:26] LABS: CALCIUM, SERUM 8.7 mg/dL (8.5-10.1); CREATININE 0.8 mg/dL (0.6-1.3); MAGNESIUM 1.7 mg/dL (1.8-2.4); POTASSIUM 3.5 mmol/L (3.5-5.1)
[2022-08-19] MEDS: BLOOD SUGAR DIAGNOSTIC 1 EACH STRIP VI SCH (06:48)
[2022-08-19] MEDS ORDERED: VANCOMYCIN 0.75 GM in IV D5W 250 ML IV SCH ×2 (08:00→16:00)
[2022-08-19] MEDS ORDERED: DEXTROSE 50%-WATER 50 ML DISP.SYRIN IV PRN (10:00)
[2022-08-19] MEDS: BLOOD SUGAR DIAGNOSTIC 1 EACH STRIP IN SCH ×3 (11:45→21:24)
[2022-08-19] MEDS: INSULIN REGULAR, HUMAN 100 UNIT/ML 3 ML VIAL SQ PRN ×2 (11:46→16:56)
[2022-08-19] MEDS: Magnesium 1GM/D5W 100ML PREMIX 100 ML IV SCH ×2 (11:46→13:24)
[2022-08-19] MEDS ORDERED: IBUPROFEN 600 MG TABLET PO PRN (14:00)
[2022-08-19] MEDS: VANCOMYCIN 1 GM in IV D5W 250 ML IV SCH (19:15)
[2022-08-19 20:00] VITALS: BP 127/80
[2022-08-19] MEDS: ENOXAPARIN SODIUM 40 MG/0.4 ML DISP.SYRIN SQ SCH (21:25)
[2022-08-19] MEDS: *INSULIN REGULAR(HUMULIN R)HUM 100 UNIT/ML VIAL SQ PRN (21:28)
[2022-08-20 05:58] LABS: BASOPHILS # (AUTO) 0.1 K/uL (0.0-0.2); BASOPHILS % (AUTO) 0.6 % (0.0-2.0); EOSINOPHILS % (AUTO) 0.6 % (0.0-6.0); HEMATOCRIT 36 % (39-51); HEMOGLOBIN 12.1 g/dL (13.5-17.5); LYMPHOCYTES # (AUTO) 2.4 K/uL (0.8-4.8); LYMPHOCYTES % (AUTO) 20.3 % (20.0-44.0); MEAN CORPUSCULAR HGB CONC 34 g/dl (31.0-36.0); MEAN CORPUSCULAR VOLUME 87 fL (80-96); MONOCYTES % (AUTO) 8.3 % (2.0-12.0); NEUTROPHILS # (AUTO) 8.4 K/uL (1.8-8.9); NEUTROPHILS % (AUTO) 70.2 % (43.0-81.0); PLATELET COUNT (AUTO) 271 K/uL (150-450); RED BLOOD CELL COUNT(AUTO) 4.14 MIL/uL (4.5-6.0)
[2022-08-20] MEDS: BLOOD SUGAR DIAGNOSTIC 1 EACH STRIP IN SCH ×4 (06:27→21:16)
[2022-08-20] MEDS: INSULIN REGULAR, HUMAN 100 UNIT/ML 3 ML VIAL SQ PRN ×3 (06:29→16:49)
[2022-08-20 07:00] LABS: CREATININE 0.8 mg/dL (0.6-1.3); PHOSPHORUS 3.1 mg/dL (2.5-4.9); POTASSIUM 3.8 mmol/L (3.5-5.1)
[2022-08-20 08:00] VITALS: BP 124/88
[2022-08-20] MEDS: VANCOMYCIN 1 GM in IV D5W 250 ML IV SCH ×2 (09:09→20:18)
[2022-08-20] MEDS ORDERED: SULF1TAB48 PO (10:04)
[2022-08-20] MEDS ORDERED: METF-442 PO (10:04)
[2022-08-20] MEDS: IBUPROFEN 600 MG TABLET PO SCH ×3 (11:55→22:56)
[2022-08-20 16:00] VITALS: BP 124/81
[2022-08-20 20:00] VITALS: BP 112/77
[2022-08-20] MEDS: IV NS 0.9% 1,000 ML IV PRN (20:23)
[2022-08-20 20:24] VITALS: BP 112/77
[2022-08-20] MEDS: ENOXAPARIN SODIUM 40 MG/0.4 ML DISP.SYRIN SQ SCH (20:58)
[2022-08-20] MEDS: *INSULIN REGULAR(HUMULIN R)HUM 100 UNIT/ML VIAL SQ PRN (21:21)
[2022-08-21] MEDS: IBUPROFEN 600 MG TABLET PO SCH ×4 (04:16→22:16)
[2022-08-21] MEDS: BLOOD SUGAR DIAGNOSTIC 1 EACH STRIP IN SCH ×4 (06:04→22:05)
[2022-08-21] MEDS: INSULIN REGULAR, HUMAN 100 UNIT/ML 3 ML VIAL SQ PRN ×3 (06:07→22:14)
[2022-08-21 07:01] LABS: CALCIUM, SERUM 8.9 mg/dL (8.5-10.1); CREATININE 0.8 mg/dL (0.6-1.3); POTASSIUM 4.1 mmol/L (3.5-5.1)
[2022-08-21 08:50] VITALS: BP 124/82
[2022-08-21] MEDS: VANCOMYCIN 1 GM in IV D5W 250 ML IV SCH ×2 (09:20→19:50)
[2022-08-21] MEDS: IV NS 0.9% 1,000 ML IV PRN (09:20)
[2022-08-21 10:58] LABS: BASOPHILS % (AUTO) 0.8 % (0.0-2.0); HEMATOCRIT 34 % (39-51); HEMOGLOBIN 11.3 g/dL (13.5-17.5); LYMPHOCYTES % (AUTO) 21.7 % (20.0-44.0); MEAN CORPUSCULAR HGB CONC 33 g/dl (31.0-36.0); MEAN CORPUSCULAR VOLUME 88 fL (80-96); MONOCYTES % (AUTO) 6.9 % (2.0-12.0); NEUTROPHILS % (AUTO) 68.6 % (43.0-81.0); PLATELET COUNT (AUTO) 284 K/uL (150-450); RED BLOOD CELL COUNT(AUTO) 3.89 MIL/uL (4.5-6.0); WHITE BLOOD COUNT (AUTO) 9.5 K/uL (4.3-11.0)
[2022-08-21 10:59] LABS: BASOPHILS # (AUTO) 0.1 K/uL (0.0-0.2); LYMPHOCYTES # (AUTO) 2.1 K/uL (0.8-4.8); MONOCYTES # (AUTO) 0.7 K/uL (0.1-1.30); NEUTROPHILS # (AUTO) 6.5 K/uL (1.8-8.9)
[2022-08-21 16:06] VITALS: BP 128/82
[2022-08-21 20:00] VITALS: BP 128/84
[2022-08-21] MEDS: ENOXAPARIN SODIUM 40 MG/0.4 ML DISP.SYRIN SQ SCH (21:19)
[2022-08-22] MEDS: IV NS 0.9% 1,000 ML IV PRN (00:38)
[2022-08-22] MEDS: IBUPROFEN 600 MG TABLET PO SCH ×2 (05:12→10:30)
[2022-08-22] MEDS: BLOOD SUGAR DIAGNOSTIC 1 EACH STRIP IN SCH ×2 (06:33→11:37)
[2022-08-22] MEDS: INSULIN REGULAR, HUMAN 100 UNIT/ML 3 ML VIAL SQ PRN (06:37)
[2022-08-22 06:49] LABS: CALCIUM, SERUM 8.4 mg/dL (8.5-10.1); CREATININE 0.9 mg/dL (0.6-1.3); POTASSIUM 3.6 mmol/L (3.5-5.1)
[2022-08-22] MEDS: VANCOMYCIN 1 GM in IV D5W 250 ML IV SCH (07:46)
[2022-08-22 08:00] VITALS: BP 126/84
[2022-08-22] MEDS ORDERED: IBUP-1953 PO (11:12)
[2022-08-22] MEDS ORDERED: SULF1TAB48 PO (11:12)
[2022-08-22] MEDS ORDERED: METF-442 PO (11:12)
[2022-08-22 16:00] VITALS: BP 131/74
== END 2022-08-22 16:00 | disposition home or self-care (01) | DRG 383 ==
LOC: ER 14:25 → MED 20:01
PROVIDERS: ADMIT Nurse Practitioner Acute Care; ATTEND Nurse Practitioner Acute Care
DX: L03.115 Cellulitis of right lower limb (principal); D68.59 Other primary thrombophilia; E87.1 Hypo-osmolality and hyponatremia; E11.65 Type 2 diabetes mellitus with hyperglycemia; E86.1 Hypovolemia; Z20.822 Contact with and (suspected) exposure to COVID-19; Z83.3 Family history of diabetes mellitus; Z79.84 Long term (current) use of oral hypoglycemic drugs; Z88.0 Allergy status to penicillin; Z74.09 Other reduced mobility
CPT/HCPCS: 36415; 73564-TC; 80048-TC; 80061-TC; 80202-TC; 82962-TC; 83605-TC; 83735-TC; 84100-TC; 85025-TC; 85652-TC; 87040-TC; 87081-TC; A6253; C9803; G0378; J1650; J1815; J3370; J3475; J7030; J7060

== ENCOUNTER 2023-06-05 15:24 | Emergency (ER) | payer BC, MEDICAID, OTHER ==
[~2023-06-05] VITALS: Ht 162.6 cm; Wt 56.7 kg
[~2023-06-05 15:24] MED LIST changes: -*INS REG3 SQ; -Blood Sugar Diagnostic IN; +IBUP-1953 PO; -INSU100C4 SQ; -INSU100I19 SQ; -INSU100V28 SQ; +METF-442 PO; +SULF1TAB48 PO
--- NOTE | 2023-06-05 15:33 | NUR ---
RIGHT EYE REDNESS X 1 WEEK. VITALS ARE WITHIN NORMAL LIMITS. AWAITING MD ARMANDO.
[2023-06-05] MEDS ORDERED: POLY10DR OP (16:14)
[2023-06-05 16:20] VITALS: BP 121/70; TEMP 98.8; O2SAT 100
--- NOTE | 2023-06-05 16:21 | NUR ---
Patient discharged to home in stable condition. Written and verbal after care instructions given. Patient verbalizes understanding of instruction.
== END 2023-06-05 16:21 | disposition home or self-care (01) ==
LOC: ER 15:30
DX: H10.31 Unspecified acute conjunctivitis, right eye (principal); Z88.0 Allergy status to penicillin